=== PATIENT | male | born 1970 | race Caucasian/White ===

== ENCOUNTER 2018-03-30 20:24 | Emergency (ER) | payer OTHER ==
[2018-03-30] MEDS ORDERED: SODIUM CHLORIDE 0.9% 500 ML 500 ML IV STA (20:57)
[2018-03-30 21:08] VITALS: RESP 18
--- NOTE | 2018-03-30 21:13 | ED ---
General Adult HPI - General Source: patient Mode of arrival: ambulatory Limitations: no limitations <Kimmie Bennett - Last Filed: 03/31/18 02:10> <Yudelka Graff - Last Filed: 04/01/18 09:27> - General Chief complaint: Dizziness Stated complaint: Lt sided numbness Time Seen by Provider: 03/30/18 20:45 - History of Present Illness Initial comments: 47-year-old male patient presents to the emergency department today for complaints of dizziness and numbness to the left side of his body. Patient states his symptoms are present when he woke this morning. States he had altered sensation to the left side of his face left arm and left leg. Patient states he did have a mild headache with this. States he felt dizzy. Denies any blurred or double vision. States he was nauseated but did not vomit. Denies any chest pain, states he was having some mild shortness of breath. Patient states he is also feeling down and depressed. Denies any suicidal or homicidal ideation. Patient does have history of high blood pressure, type 2 diabetes, high cholesterol. States he was late taking his blood pressure medication today. Patient denies any recent rash, fever, chills, diarrhea, constipation, back pain, hematuria, dysuria, urinary urgency, urinary frequency , or any other complaints. (Kimmie Bennett) - Related Data Home Medications Medication Instructions Recorded Confirmed Aspirin 325 - 650 mg PO Q4H PRN 12/02/15 12/02/15 Atorvastatin [Lipitor] 10 mg PO HS 12/02/15 12/02/15 Losartan/Hydrochlorothiazide 1 tab PO HS 12/02/15 12/02/15 [Losartan-Hctz 100-25 mg Tab] PARoxetine HCL [Paroxetine HCl] 20 mg PO HS 12/02/15 12/02/15 Tadalafil [Cialis] 5 mg PO DIRECTED 12/02/15 12/02/15 amLODIPine BESYLATE [Amlodipine 10 mg PO HS 12/02/15 12/02/15 Besylate] metFORMIN HCL 500 mg PO HS 12/02/15 12/02/15 Allergies Allergy/AdvReac Type Severity Reaction Status Date / Time No Known Allergies Allergy Verified 03/30/18 20:32 Review of Systems ROS Other: All systems not noted in ROS Statement are negative. <Kimmie Bennett - Last Filed: 03/31/18 02:10> ROS Other: All systems not noted in ROS Statement are negative. <Yudelka Graff - Last Filed: 04/01/18 09:27> ROS Statement: Those systems with pertinent positive or pertinent negative responses have been documented in the HPI. Past Medical History Past Medical History: Diabetes Mellitus, Hyperlipidemia, Hypertension History of Any Multi-Drug Resistant Organisms: None Reported Past Surgical History: No Surgical Hx Reported Past Psychological History: Depression Smoking Status: Never smoker Past Alcohol Use History: None Reported Past Drug Use History: None Reported <LeonieJasper loraina M - Last Filed: 03/31/18 02:10> General Exam Limitations: no limitations General appearance: alert, in no apparent distress, other (This is a well- developed, well-nourished adult male patient in no acute distress. Vital signs upon presentation are temperature 98.4F, pulse 97, respirations 16, blood pressure 140/101, pulse ox 99% on room air.) Eye exam: Present: normal appearance, PERRL, EOMI. Absent: scleral icterus, conjunctival injection, periorbital swelling ENT exam: Present: normal exam, normal oropharynx, mucous membranes moist, TM's normal bilaterally Respiratory exam: Present: normal lung sounds bilaterally. Absent: respiratory distress, wheezes, rales, rhonchi, stridor Cardiovascular Exam: Present: regular rate, normal rhythm, normal heart sounds. Absent: systolic murmur, diastolic murmur, rubs, gallop, clicks Neurological exam: Present: alert, oriented X3, CN II-XII intact Expanded Speech: Present: fluid speech Cranial nerves: EOM's Intact: Normal, Tongue Deviation: Normal, Nystagmus: Normal Upper motor neuron: Pronator Drift: Normal, Sensory Extinction: Normal Sensory exam: Upper Extremity Light Touch: Normal, Lower Extremity Light Touch: Normal Motor strength exam: RUE: 5, LUE: 5, RLE: 5, LLE: 5 Psychiatric exam: Present: normal affect, normal mood Skin exam: Present: warm, dry, intact, normal color. Absent: rash <Kimmie Bennett M - Last Filed: 03/31/18 02:10> Vital Signs 03/30/18 03/30/18 03/30/18 20:28 21:05 21:40 Temperature 98.4 F Pulse Rate 97 91 98 Respiratory 16 18 18 Rate Blood Pressure 148/101 143/105 134/96 O2 Sat by Pulse 99 95 96 Oximetry 03/30/18 22:37 Temperature 98.0 F Pulse Rate 72 Respiratory 18 Rate Blood Pressure 141/109 O2 Sat by Pulse 99 Oximetry EKG Findings - EKG Comments: EKG Findings:: EKG obtained at 2054 shows normal sinus rhythm with an incomplete right bundle branch block. Ventricular rate is 80, parent will 160, QRS duration 104, QT 362, QTc 417. No evidence of ST elevation or depression. <Kimmie Bennett - Last Filed: 03/31/18 02:10> Medical Decision Making - Lab Data Result diagrams: 03/30/18 21:00 03/30/18 21:00 - Radiology Data Radiology results: report reviewed, image reviewed <Kimmie Bennett - Last Filed: 03/31/18 02:10> - Lab Data Result diagrams: 03/30/18 21:00 03/30/18 21:00 <Yudelka Graff - Last Filed: 04/01/18 09:27> - Medical Decision Making 47-year-old male patient presents to the emergency department today with complaints of her seizure to the left side of his body and some dizziness. Physical examination was unremarkable. Patient is neurologically intact with no focal deficits. Labs reviewed and are unremarkable. CT brain showed no acute intracranial abnormality but did show evidence of right-sided mastoiditis. Patient denies any ear pain, hearing impairment, or fever. For this could be related to inflammation or chronic for the patient. Patient does report symptoms have resolved at this time. He'll be discharged home to follow- up with his primary care physician to discuss referral to neurology. Return parameters were discussed in detail. He verbalizes understanding and agrees with this plan. (Kimmie Bennett) I was available for consultation in the emergency department. The history and physical exam were done by the midlevel provider. I was consulted for this patient's care. I reviewed the case with the midlevel provider and based on their presentation of the patient, I agree with the assessment, medical decision making and plan of care as documented. (Yudelka Graff) - Lab Data Lab Results 03/30/18 03/30/18 03/30/18 Range/Units 21:00 21:00 21:00 WBC 9.8 (3.8-10.6) k/uL RBC 5.18 (4.30-5.90) m/uL Hgb 15.1 (13.0-17.5) gm/dL Hct 44.7 (39.0-53.0) % MCV 86.3 (80.0-100.0) fL MCH 29.2 (25.0-35.0) pg MCHC 33.8 (31.0-37.0) g/dL RDW 12.2 (11.5-15.5) % Plt Count 288 (150-450) k/uL Neutrophils % 58 % Lymphocytes % 32 % Monocytes % 5 % Eosinophils % 2 % Basophils % 1 % Neutrophils # 5.7 (1.3-7.7) k/uL Lymphocytes # 3.1 (1.0-4.8) k/uL Monocytes # 0.5 (0-1.0) k/uL Eosinophils # 0.2 (0-0.7) k/uL Basophils # 0.1 (0-0.2) k/uL PT 10.1 (9.0-12.0) sec INR 0.9 (<1.2) APTT 22.9 (22.0-30.0) sec Sodium 139 (137-145) mmol/L Potassium 4.1 (3.5-5.1) mmol/L Chloride 102 (98-107) mmol/L Carbon Dioxide 24 (22-30) mmol/L Anion Gap 13 mmol/L BUN 23 H (9-20) mg/dL Creatinine 0.85 (0.66-1.25) mg/dL Est GFR (CKD-EPI)AfAm >90 (>60 ml/min/1.73 sqM) Est GFR (CKD-EPI)NonAf >90 (>60 ml/min/1.73 sqM) Glucose 137 H (74-99) mg/dL Calcium 9.7 (8.4-10.2) mg/dL Total Bilirubin 1.3 (0.2-1.3) mg/dL AST 32 (17-59) U/L ALT 39 (21-72) U/L Alkaline Phosphatase 79 (38-126) U/L Troponin I (0.000-0.034) ng/mL Total Protein 8.0 (6.3-8.2) g/dL Albumin 4.6 (3.5-5.0) g/dL Urine Color Urine Appearance (Clear) Urine pH (5.0-8.0) Ur Specific [place] (1.001-1.035) Urine Protein (Negative) Urine Glucose (UA) (Negative) Urine Ketones (Negative) Urine Blood (Negative) Urine Nitrite (Negative) Urine Bilirubin (Negative) Urine Urobilinogen (<2.0) mg/dL Ur Leukocyte Esterase (Negative) Urine Opiates Screen (NotDetected) Ur Oxycodone Screen (NotDetected) Urine Methadone Screen (NotDetected) Ur Propoxyphene Screen (NotDetected) Ur Barbiturates Screen (NotDetected) U Tricyclic Antidepress (NotDetected) Ur Phencyclidine Scrn (NotDetected) Ur Amphetamines Screen (NotDetected) U Methamphetamines Scrn (NotDetected) U Benzodiazepines Scrn (NotDetected) Urine Cocaine Screen (NotDetected) U Marijuana (THC) Screen (NotDetected) 03/30/18 03/30/18 Range/Units 21:00 21:38 WBC (3.8-10.6) k/uL RBC (4.30-5.90) m/uL Hgb (13.0-17.5) gm/dL Hct (39.0-53.0) % MCV (80.0-100.0) fL MCH (25.0-35.0) pg MCHC (31.0-37.0) g/dL RDW (11.5-15.5) % Plt Count (150-450) k/uL Neutrophils % % Lymphocytes % % Monocytes % % Eosinophils % % Basophils % % Neutrophils # (1.3-7.7) k/uL Lymphocytes # (1.0-4.8) k/uL Monocytes # (0-1.0) k/uL Eosinophils # (0-0.7) k/uL Basophils # (0-0.2) k/uL PT (9.0-12.0) sec INR (<1.2) APTT (22.0-30.0) sec Sodium (137-145) mmol/L Potassium (3.5-5.1) mmol/L Chloride (98-107) mmol/L Carbon Dioxide (22-30) mmol/L Anion Gap mmol/L BUN (9-20) mg/dL Creatinine (0.66-1.25) mg/dL Est GFR (CKD-EPI)AfAm (>60 ml/min/1.73 sqM) Est GFR (CKD-EPI)NonAf (>60 ml/min/1.73 sqM) Glucose (74-99) mg/dL Calcium (8.4-10.2) mg/dL Total Bilirubin (0.2-1.3) mg/dL AST (17-59) U/L ALT (21-72) U/L Alkaline Phosphatase (38-126) U/L Troponin I <0.012 (0.000-0.034) ng/mL Total Protein (6.3-8.2) g/dL Albumin (3.5-5.0) g/dL Urine Color Light Yellow Urine Appearance Clear (Clear) Urine pH 6.0 (5.0-8.0) Ur Specific [place] 1.014 (1.001-1.035) Urine Protein Negative (Negative) Urine Glucose (UA) Negative (Negative) Urine Ketones Trace H (Negative) Urine Blood Negative (Negative) Urine Nitrite Negative (Negative) Urine Bilirubin Negative (Negative) Urine Urobilinogen <2.0 (<2.0) mg/dL Ur Leukocyte Esterase Negative (Negative) Urine Opiates Screen Not Detected (NotDetected) Ur Oxycodone Screen Not Detected (NotDetected) Urine Methadone Screen Not Detected (NotDetected) Ur Propoxyphene Screen Not Detected (NotDetected) Ur Barbiturates Screen Not Detected (NotDetected) U Tricyclic Antidepress Not Detected (NotDetected) Ur Phencyclidine Scrn Not Detected (NotDetected) Ur Amphetamines Screen Not Detected (NotDetected) U Methamphetamines Scrn Not Detected (NotDetected) U Benzodiazepines Scrn Not Detected (NotDetected) Urine Cocaine Screen Not Detected (NotDetected) U Marijuana (THC) Screen Not Detected (NotDetected) - Radiology Data CT scan of the brain without contrast was performed. Report was reviewed in its entirety. Impression by Dr. Boss shows mild atrophy. No acute intracranial abdomen. Incomplete pneumatization of the right mastoid sinuses consistent with mastoiditis. This is a change compared to old exam. (Kimmie Bennett) Disposition Is patient prescribed a controlled substance at d/c from ED?: No Time of Disposition: 22:24 <Kimmie Bennett - Last Filed: 03/31/18 02:10> <Yudelka Graff - Last Filed: 04/01/18 09:27> Clinical Impression: Paresthesia, Dizziness Disposition: HOME SELF-CARE Condition: Good Instructions: Paresthesia (ED), Dizziness (ED) Additional Instructions: Follow-up with your primary care physician for recheck in 1-2 days. Discuss referral to neurology. Return immediately for any new, worsening, or concerning symptoms. Referrals: Guanakito Valladares MD [Primary Care Provider] - 1-2 days
[2018-03-30 21:21] LABS: Basophils # (A) 0.1 k/uL (0-0.2); Basophils % (A) 1 %; Eosinophils # (A) 0.2 k/uL (0-0.7); Eosinophils % (A) 2 %; HCT 44.7 % (39.0-53.0); HGB 15.1 gm/dL (13.0-17.5); Lymphocytes # (A) 3.1 k/uL (1.0-4.8); Lymphocytes % (A) 32 %; MCH 29.2 pg (25.0-35.0); MCHC 33.8 g/dL (31.0-37.0); MCV 86.3 fL (80.0-100.0); Mean Platelet Volume 6.6; Monocytes # (A) 0.5 k/uL (0-1.0); Monocytes % (A) 5 %; Neutrophils # (A) 5.7 k/uL (1.3-7.7); Neutrophils % (A) 58 %; Platelet Count 288 k/uL (150-450); RBC 5.18 m/uL (4.30-5.90); RDW 12.2 % (11.5-15.5); WBC 9.8 k/uL (3.8-10.6)
[2018-03-30 21:30] LABS: ALT 39 U/L (21-72); AST 32 U/L (17-59); Albumin 4.6 g/dL (3.5-5.0); Alkaline Phosphatase 79 U/L (38-126); Anion Gap 13 mmol/L; Blood Urea Nitrogen 23 mg/dL (9-20); Calcium 9.7 mg/dL (8.4-10.2); Carbon Dioxide 24 mmol/L (22-30); Chloride 102 mmol/L (98-107); Glucose 137 mg/dL (74-99); INR 0.9 (<1.2); Partial Thromboplastin Time 22.9 sec (22.0-30.0); Potassium 4.1 mmol/L (3.5-5.1); Prothrombin Time 10.1 sec (9.0-12.0); Sodium 139 mmol/L (137-145); Total Bilirubin 1.3 mg/dL (0.2-1.3)
--- NOTE | 2018-03-30 21:35 | CT ---
EXAMINATION TYPE: CT brain wo con DATE OF EXAM: 03/30/2018 COMPARISON: 06/10/2011 HISTORY: Dizziness and headache. CT DLP: 1150.4 mGycm. Automated Exposure Control for Dose Reduction was Utilized. TECHNIQUE: CT scan of the head is performed without contrast. FINDINGS: Ventricles of normal size. There is no mass effect nor midline shift. There is no sign of i ntracranial hemorrhage. The calvarium is intact. There is mild cerebral atrophy. IMPRESSION: Mild atrophy. No acute intracranial abnormality. Incomplete pneumatization of the right mastoid sinuses consistent with mastoiditis. This is a change compared to old exam.
[2018-03-30 22:03] LABS: Appearance,Urine Clear (Clear); Bilirubin,Urine Negative (Negative); Blood,Urine Negative (Negative); Color,Urine Light Yellow; Glucose,Urine (UA) Negative (Negative); Ketones,Urine Trace (Negative); Leukocyte Esterase,Urine Negative (Negative); Nitrite,Urine Negative (Negative); Protein,Urine Negative (Negative); Specific Gravity,Urine 1.014 (1.001-1.035); Urobilinogen,Urine <2.0 mg/dL (<2.0)
[2018-03-30 22:11] LABS: Amphetamine Screen,Urine Not Detected (NotDetected); Barbiturate Screen,Urine Not Detected (NotDetected); Benzodiazepines Screen,Urine Not Detected (NotDetected); Cocaine Screen,Urine Not Detected (NotDetected); Methadone Screen, Urine Not Detected (NotDetected); Opiate Screen,Urine Not Detected (NotDetected); Oxycodone Screen, Urine Not Detected (NotDetected); Phencyclidine Screen,Urine Not Detected (NotDetected); Tricyclic Antidepressant,Urine Not Detected (NotDetected); Urn Cannabinoid Scrn Not Detected (NotDetected)
[2018-03-30 22:38] VITALS: BP 141/109; PULSE 72; TEMP 98
== END 2018-03-30 22:38 | disposition home or self-care (01) ==
LOC: EC 20:24
DX: R20.2 Paresthesia of skin (principal); R42 Dizziness and giddiness; H70.91 Unspecified mastoiditis, right ear; R20.0 Anesthesia of skin; R11.0 Nausea; Z79.82 Long term (current) use of aspirin; Z79.84 Long term (current) use of oral hypoglycemic drugs; Z79.899 Other long term (current) drug therapy; E11.9 Type 2 diabetes mellitus without complications; E78.5 Hyperlipidemia, unspecified; I10 Essential (primary) hypertension; F32.9 Major depressive disorder, single episode, unspecified
CPT/HCPCS: 36415; 70450; 80053; 80306; 81003; 84484; 85025; 85610; 85730; 93005; 96360; 99284

== ENCOUNTER 2019-03-26 16:28 | Emergency (ER) | payer OTHER ==
--- NOTE | 2019-03-26 17:54 | XR ---
EXAMINATION TYPE: XR Hip Complete RT DATE OF EXAM: 03/26/2019 COMPARISON: 07/22/2015 HISTORY: Right hip pain TECHNIQUE: 2 views FINDINGS: Proximal femur is intact. Hip joint space is fairly normal. There is mild acetabular spurri ng. Right sacroiliac joint appears intact. IMPRESSION: No acute abnormality of the pelvis and right hip. Hip joint space is normal. No change co mpared to old exam.
--- NOTE | 2019-03-26 17:58 | XR ---
EXAMINATION TYPE: XR lumbar spine 2 or 3V DATE OF EXAM: 03/26/2019 COMPARISON: NONE HISTORY: Back pain TECHNIQUE: 3 views FINDINGS: Lumbar vertebra have normal alignment. There is anterior spurring at L4-5 and L5-S1. There is narrowing of L5-S1 disc space. Posterior elements are intact. Sacroiliac joints appear normal. IMPRESSION: Spondylosis in the lower lumbar spine. No fracture.
[2019-03-26] MEDS ORDERED: ACET/COD 300 MG/30 MG STARTER PACK 6 TAB BTL PO STA (18:54)
--- NOTE | 2019-03-26 18:54 | ED ---
Lower Extremity Injury HPI - General Source: patient Mode of arrival: ambulatory Limitations: no limitations <Shelly Luna - Last Filed: 03/27/19 00:01> <Kathi Leung - Last Filed: 03/29/19 21:33> - General Chief Complaint: Extremity Injury, Lower Stated Complaint: leg & knee pain Time Seen by Provider: 03/26/19 17:01 - History of Present Illness Initial Comments: 48-year-old male history of hypertension diabetes presenting today for chief complaint of right posterior leg pain. Patient states he is pain-free was noted that is a sharp burning pain down towards his right knee. Patient denies any leg swelling. Patient denies any history of DVT or pulmonary embolism. 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 Patient has a severe low back pain direct trauma or injury. Patient denies fe vers IV drug use history of cancer. Patient denies a loss of bowel bladder control urinary retention weakness or loss sensation of the lower extremity. Remaining review of systems negative upon arrival patient is ambultory. No signs of acute distress (Shelly Luna) - Related Data Home Medications Medication Instructions Recorded Confirmed Aspirin 325 - 650 mg PO Q4H PRN 12/02/15 12/02/15 Atorvastatin [Lipitor] 10 mg PO HS 12/02/15 12/02/15 Losartan/Hydrochlorothiazide 1 tab PO HS 12/02/15 12/02/15 [Losartan-Hctz 100-25 mg Tab] PARoxetine HCL [Paroxetine HCl] 20 mg PO HS 12/02/15 12/02/15 Tadalafil [Cialis] 5 mg PO DIRECTED 12/02/15 12/02/15 amLODIPine BESYLATE [Amlodipine 10 mg PO HS 12/02/15 12/02/15 Besylate] metFORMIN HCL 500 mg PO HS 12/02/15 12/02/15 Allergies Allergy/AdvReac Type Severity Reaction Status Date / Time No Known Allergies Allergy Verified 03/30/18 20:32 Review of Systems ROS Other: All systems not noted in ROS Statement are negative. <Shelly Luna - Last Filed: 03/27/19 00:01> ROS Other: All systems not noted in ROS Statement are negative. <Kathi Leung - Last Filed: 03/29/19 21:33> ROS Statement: Those systems with pertinent positive or pertinent negative responses have been documented in the HPI. Past Medical History Past Medical History: Diabetes Mellitus, Hyperlipidemia, Hypertension History of Any Multi-Drug Resistant Organisms: None Reported Past Surgical History: No Surgical Hx Reported Past Psychological History: Depression Smoking Status: Never smoker Past Alcohol Use History: None Reported Past Drug Use History: None Reported <Shelly Luna - Last Filed: 03/27/19 00:01> General Exam Limitations: no limitations <Shelly Luna - Last Filed: 03/27/19 00:01> - General Exam Comments Initial Comments: General: The patient is awake and alert, in no distress, and does not appear acutely ill. Eye: +3 mm pupils are equal, round and reactive to light, extra-ocular movements are intact. No nystagmus. There is normal conjunctiva bilaterally. No signs of icterus. Ears, nose, mouth and throat: There are moist mucous membranes and no oral lesions. Neck: The neck is supple, there is no tenderness or JVD. Cardiovascular: There is a regular rate and rhythm. No murmur, rub or gallop is appreciated. Respiratory: Lungs are clear to auscultation, respirations are non-labored, breath sounds are equal. No wheezes, stridor, rales, or rhonchi. Musculoskeletal: Some midline tenderness to palpation of the lumbar spine, mostly right-sided paravertebral. Patient has pain over the central buttock, normal inspection. Patient has no swelling of the lower extremity bilaterally. Strength and sensation including the saddle region. +2 dorsalis pedis pulses equal to person bilaterally. No Edema or clf pain pain to palpation. Neurological: A&O x 3. CN II-XII intact grossly, There are no obvious motor or sensory deficits. Coordination appears grossly intact. Speech is normal. Skin: Skin is warm and dry and no rashes or lesions are noted. Psychiatric: Cooperative, appropriate mood & affect, normal judgment. (Shelly Luna) Course Vital Signs 03/26/19 03/26/19 17:04 19:29 Temperature 98.4 F 98.2 F Pulse Rate 90 74 Respiratory 17 18 Rate Blood Pressure 139/84 128/82 O2 Sat by Pulse 98 99 Oximetry Medical Decision Making <Shelly Luna - Last Filed: 03/27/19 00:01> <Kathi Leung - Last Filed: 03/29/19 21:33> - Medical Decision Making 48-year-old male presenting for right leg pain. Patient's pain appears in the sciatic region. Lumbar spine films reveal no acute abnormalities nor right hip. Patient is neurovascularly intact. No leg swelling. Normal neurovascular exam. At this time given patient's burning description and the area of location if this is a sciatic, versus radiculopathy from lumbar spine. I discussed the importance of stressors and primary care follow-up with return parameters as discussed such as loss of bowel bladder control urinary retention loss of sensation or weakness of the lower extremities patient verbalized understanding and is discharge after I discussed the case with attending provider Dr. Leung (Shelly Luna) I was available for consultation in the emergency department. The history and physical exam were done by the midlevel provider. I was consulted for this patients care. I reviewed the case with the midlevel provider and based on their presentation of the patient, I agree with the assessment, medical decision making and plan of care as documented. Chart was dictated using [employer] dictation software. Attempts were made to correct any dictation errors however some typographical errors may persist. (Kathi Leung) Disposition Is patient prescribed a controlled substance at d/c from ED?: No Time of Disposition: 18:53 <Shelly Luna - Last Filed: 03/27/19 00:01> <Kathi Leung - Last Filed: 03/29/19 21:33> Clinical Impression: Leg pain, Radiculopathy Disposition: HOME SELF-CARE Condition: Good Instructions (If sedation given, give patient instructions): Lumbar Radiculopathy (ED), Piriformis Syndrome (ED) Additional Instructions: Please use medication as discussed. Please follow-up with family doctor in the next 2 days, return if there is any leg swelling, loss of bowel bladder control, unable to urinate, fever, weakness of the lower extremities. Please return to emergency room if the symptoms increase or worsen or for any other concerns. Referrals: Guanakito Valladares MD [Primary Care Provider] - 1-2 days
[2019-03-26 19:37] VITALS: BP 128/82; PULSE 74; RESP 18; TEMP 98.2
== END 2019-03-26 19:29 | disposition home or self-care (01) ==
LOC: EC 16:28
DX: M54.10 Radiculopathy, site unspecified (principal); E11.9 Type 2 diabetes mellitus without complications; I10 Essential (primary) hypertension; E78.5 Hyperlipidemia, unspecified; F32.9 Major depressive disorder, single episode, unspecified; Z79.82 Long term (current) use of aspirin; Z79.84 Long term (current) use of oral hypoglycemic drugs; Z79.899 Other long term (current) drug therapy
CPT/HCPCS: 72100; 73502; 99283

== ENCOUNTER 2019-06-11 21:29 | Emergency (ER) | payer OTHER ==
[2019-06-11 21:33] VITALS: RESP 18
[2019-06-11] MEDS ORDERED: ACETAMINOPHEN TAB 500 MG TAB PO STA (22:00)
--- NOTE | 2019-06-11 22:09 | ED ---
ENT HPI - General Chief complaint: ENT Stated complaint: Cough Time Seen by Provider: 06/11/19 21:43 Source: patient, RN notes reviewed, old records reviewed Mode of arrival: ambulatory Limitations: no limitations - History of Present Illness Initial comments: This is a 49-year-old male to the ER for evaluation patient has a for evaluation of nausea sore throat fevers patient is concerned for not feeling well positive fevers diffuse body aches and pains mild nausea no vomiting sore throat positive cough. Patient does have diabetes high blood pressure nonsmoker no travel history no sick contacts no known significant exposures. Patient concern for illness in symptoms began last night MD complaint: sore throat, other (cough, fever) -: days(s) Location: throat Severity: moderate (fever, pain) Severity scale (1-10): 5 Quality: aching, other (body aches) Improves with: none Worsens with: none Context- Ear: recent illness Associated Symptoms: fever, cough, sore throat - Related Data Home Medications Medication Instructions Recorded Confirmed Aspirin 325 - 650 mg PO Q4H PRN 12/02/15 12/02/15 Atorvastatin [Lipitor] 10 mg PO HS 12/02/15 12/02/15 Losartan/Hydrochlorothiazide 1 tab PO HS 12/02/15 12/02/15 [Losartan-Hctz 100-25 mg Tab] PARoxetine HCL [Paroxetine HCl] 20 mg PO HS 12/02/15 12/02/15 Tadalafil [Cialis] 5 mg PO DIRECTED 12/02/15 12/02/15 amLODIPine BESYLATE [Amlodipine 10 mg PO HS 12/02/15 12/02/15 Besylate] metFORMIN HCL 500 mg PO HS 12/02/15 12/02/15 Allergies Allergy/AdvReac Type Severity Reaction Status Date / Time No Known Allergies Allergy Verified 03/30/18 20:32 Review of Systems ROS Statement: Those systems with pertinent positive or pertinent negative responses have been documented in the HPI. ROS Other: All systems not noted in ROS Statement are negative. Past Medical History Past Medical History: Diabetes Mellitus, Hyperlipidemia, Hypertension History of Any Multi-Drug Resistant Organisms: None Reported Past Surgical History: No Surgical Hx Reported Past Psychological History: Depression Smoking Status: Never smoker Past Alcohol Use History: None Reported Past Drug Use History: None Reported General Exam Limitations: no limitations General appearance: alert, in no apparent distress Head exam: Present: atraumatic, normocephalic, normal inspection Eye exam: Present: normal appearance, PERRL, EOMI. Absent: scleral icterus, conjunctival injection, periorbital swelling ENT exam: Present: normal exam, mucous membranes moist Neck exam: Present: normal inspection. Absent: tenderness, meningismus, lymphadenopathy Respiratory exam: Present: normal lung sounds bilaterally. Absent: respiratory distress, wheezes, rales, rhonchi, stridor Cardiovascular Exam: Present: regular rate, normal rhythm, normal heart sounds. Absent: systolic murmur, diastolic murmur, rubs, gallop, clicks GI/Abdominal exam: Present: soft, normal bowel sounds. Absent: distended, ten derness, guarding, rebound, rigid Extremities exam: Present: normal inspection, full ROM, normal capillary refill. Absent: tenderness, pedal edema, joint swelling, calf tenderness Back exam: Present: normal inspection Neurological exam: Present: alert, oriented X3, CN II-XII intact Psychiatric exam: Present: normal affect, normal mood Skin exam: Present: warm, dry, intact, normal color. Absent: rash Course Vital Signs 06/11/19 06/11/19 21:30 22:36 Temperature 98.3 F 99.3 F Pulse Rate 88 Respiratory 18 Rate Blood Pressure 168/114 O2 Sat by Pulse 98 Oximetry - Reevaluation(s) Reevaluation #1: 06/11/19 22:34 medical record is reviewed Reevaluation #2: 06/11/19 22:35 patient is in NAD, no SOB, no Fever Reevaluation #3: 06/11/19 22:35 discussed with patient at length findings and informed positive flu test, patient still recommended a quarantined for 14 days Medical Decision Making - Medical Decision Making 49 male DF for evaluation patient with fever cough sore throat bodyaches and pains patient's positive for influenza. Patient was placed on Tamiflu discharged home still remembering recommended patient to be quarantined is questionable sulfur 14 - Lab Data Lab Results 06/11/19 Range/Units 22:13 Influenza Type A RNA Detected H (Not Detectd) Influenza Type B (PCR) Not Detected (Not Detectd) Group A Strep Rapid Negative (Negative) - Radiology Data Radiology results: report reviewed (Chest x-ray is negative for acute disease), image reviewed Disposition Clinical Impression: Influenza A, Fever Disposition: HOME SELF-CARE Condition: Good Instructions (If sedation given, give patient instructions): Influenza (ED) Is patient prescribed a controlled substance at d/c from ED?: No Referrals: Guanakito Valladares MD [Primary Care Provider] - 1-2 days
--- NOTE | 2019-06-11 22:35 | XR ---
EXAMINATION TYPE: XR chest 2V DATE OF EXAM: 06/11/2019 COMPARISON: 08/18/2015 HISTORY: Cough TECHNIQUE: FINDINGS: Heart and mediastinum are normal. Lungs are clear. Diaphragm is normal. Bony thorax appears normal. IMPRESSION: Normal chest. No change.
[2019-06-11 22:36] VITALS: TEMP 99.3
[2019-06-11 22:44] VITALS: BP 140/100; PULSE 89
== END 2019-06-11 22:45 | disposition home or self-care (01) ==
LOC: EC 21:29
DX: J10.1 Influenza due to other identified influenza virus with other respiratory manifestations (principal); E11.9 Type 2 diabetes mellitus without complications; I10 Essential (primary) hypertension; E78.5 Hyperlipidemia, unspecified; F32.9 Major depressive disorder, single episode, unspecified; Z79.82 Long term (current) use of aspirin; Z79.84 Long term (current) use of oral hypoglycemic drugs; Z79.899 Other long term (current) drug therapy
CPT/HCPCS: 71046; 87081; 87430; 87502; 99284

== ENCOUNTER 2020-10-18 18:57 | Emergency (ER) | payer OTHER ==
[2020-10-18 19:15] VITALS: TEMP 98.5
[2020-10-18] MEDS ORDERED: SODIUM CHLORIDE 0.9% 1,000 ML IV STA (19:39)
[2020-10-18] MEDS ORDERED: ONDANSETRON 4 MG/2 ML VIAL IVP STA (19:40)
--- NOTE | 2020-10-18 19:45 | ED ---
General Adult HPI - General Chief complaint: Recheck/Abnormal Lab/Rx Stated complaint: post vaccine issues Source: patient, RN notes reviewed, old records reviewed Mode of arrival: ambulatory Limitations: no limitations - History of Present Illness Initial comments: 50-year-old white male, well-appearing alert and oriented 4, presents to the emergency room with complaints of 4 months of fatigue, shortness of breath and generalized weakness since obtaining his second dose of the covid vaccine back in June. Patient states he has not felt right since he had 10 days after the vaccine where he was really sick but should be directed to the normal side effects. 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 He denies any fevers or vomiting but does state that he does get nauseous quite often. He states he has also been very thirsty with a dry mouth. Patient has not seen his primary care doctor for this. -: month(s) (4) Radiation: non-radiation Severity scale (1-10): 6 Quality: aching Consistency: constant Improves with: rest Worsens with: movement, other (Exception) Associated Symptoms: headaches, malaise, shortness of breath, weakness Treatments Prior to Arrival: none - Related Data Home Medications Medication Instructions Recorded Confirmed Aspirin 325 - 650 mg PO Q4H PRN 12/02/15 12/02/15 Atorvastatin [Lipitor] 10 mg PO HS 12/02/15 12/02/15 Losartan/Hydrochlorothiazide 1 tab PO HS 12/02/15 12/02/15 [Losartan-Hctz 100-25 mg Tab] amLODIPine BESYLATE [Amlodipine 10 mg PO HS 12/02/15 12/02/15 Besylate] metFORMIN HCL 500 mg PO HS 12/02/15 10/18/20 Previous Rx's Medication Instructions Recorded metFORMIN HCL [Glucophage] 500 mg PO BID 15 Days #30 tab 10/18/20 Allergies Allergy/AdvReac Type Severity Reaction Status Date / Time No Known Allergies Allergy Verified 10/18/20 21:19 Review of Systems ROS Statement: Those systems with pertinent positive or pertinent negative responses have been documented in the HPI. ROS Other: All systems not noted in ROS Statement are negative. Past Medical History Past Medical History: Diabetes Mellitus, Hyperlipidemia, Hypertension History of Any Multi-Drug Resistant Organisms: None Reported Past Surgical History: No Surgical Hx Reported Past Psychological History: Depression Smoking Status: Never smoker Past Alcohol Use History: None Reported Past Drug Use History: None Reported General Exam Limitations: no limitations General appearance: alert, in no apparent distress Head exam: Present: atraumatic, normocephalic, normal inspection Eye exam: Present: normal appearance, PERRL, EOMI. Absent: scleral icterus, conjunctival injection, periorbital swelling Pupils: Present: normal accommodation ENT exam: Present: normal exam, normal oropharynx, mucous membranes moist Neck exam: Present: normal inspection, full ROM. Absent: tenderness, meningismus, lymphadenopathy, thyromegaly Respiratory exam: Present: normal lung sounds bilaterally. Absent: respiratory distress, wheezes, rales, rhonchi, stridor, chest wall tenderness, accessory muscle use, decreased breath sounds, prolonged expiratory Cardiovascular Exam: Present: regular rate, normal rhythm, normal heart sounds. Absent: systolic murmur, diastolic murmur, rubs, gallop, clicks GI/Abdominal exam: Present: soft, normal bowel sounds. Absent: distended, tenderness, guarding, rebound, rigid Extremities exam: Present: normal inspection, full ROM, normal capillary refill. Absent: tenderness, pedal edema, joint swelling, calf tenderness Back exam: Present: normal inspection, full ROM. Absent: tenderness, CVA tenderness (R), CVA tenderness (L), muscle spasm, paraspinal tenderness, vertebral tenderness, rash noted Neurological exam: Present: alert, oriented X3, CN II-XII intact, normal gait Psychiatric exam: Present: normal affect, normal mood Skin exam: Present: warm, dry, intact, normal color. Absent: rash, cyanosis, diaphoretic, erythema, petechiae, pallor, mottled Course Vital Signs 10/18/20 19:11 Temperature 98.5 F Pulse Rate 86 Respiratory 20 Rate Blood Pressure 128/86 O2 Sat by Pulse 95 Oximetry EKG Findings - EKG Results: EKG: sinus rhythm (Ventricular rate 73, MA interval 0.138, QRS 0.106, QTC of 0.445), no acute changes, not changed from: (03/30/2018) Medical Decision Making - Medical Decision Making Sodium is 129, BUN 38 with a creatinine of 1.22, glucose is 348. patient is a inv-gvosjdy-zblehhmes diabetic on metformin 500 mg daily at bedtime. Urine shows 4+ glucose, negative for ketones and nitrites. Hyponatremia and hyperglycemia may be contributing to the patient's symptoms over the past 4 months. His troponin is negative at 0.012. Chest x-ray shows no cardiopulmonary abnormalities, normal chest x-ray. He has not seen Dr. Valladares for these symptoms. He was given a liter of normal saline. There is no evidence that this is infectious. Will increase patient's metformin dose to twice a day and have him follow-up with his primary care doctor this week. Case was discussed with Dr. Graff. - Lab Data Result diagrams: 10/18/20 19:40 10/18/20 19:40 Lab Results 10/18/20 10/18/20 10/18/20 Range/Units 19:40 19:40 19:40 WBC 9.8 (3.8-10.6) k/uL RBC 5.13 (4.30-5.90) m/uL Hgb 15.2 (13.0-17.5) gm/dL Hct 44.0 (39.0-53.0) % MCV 85.7 (80.0-100.0) fL MCH 29.6 (25.0-35.0) pg MCHC 34.5 (31.0-37.0) g/dL RDW 12.7 (11.5-15.5) % Plt Count 303 (150-450) k/uL MPV 7.7 Neutrophils % 60 % Lymphocytes % 29 % Monocytes % 6 % Eosinophils % 1 % Basophils % 0 % Neutrophils # 5.9 (1.3-7.7) k/uL Lymphocytes # 2.9 (1.0-4.8) k/uL Monocytes # 0.6 (0-1.0) k/uL Eosinophils # 0.1 (0-0.7) k/uL Basophils # 0.0 (0-0.2) k/uL D-Dimer 0.24 (<0.60) mg/L FEU Sodium (137-145) mmol/L Potassium (3.5-5.1) mmol/L Chloride (98-107) mmol/L Carbon Dioxide (22-30) mmol/L Anion Gap mmol/L BUN (9-20) mg/dL Creatinine (0.66-1.25) mg/dL Est GFR (CKD-EPI)AfAm (>60 ml/min/1.73 sqM) Est GFR (CKD-EPI)NonAf (>60 ml/min/1.73 sqM) Glucose (74-99) mg/dL Plasma Lactic Acid Nader (0.7-2.0) mmol/L Calcium (8.4-10.2) mg/dL Magnesium (1.6-2.3) mg/dL Total Bilirubin (0.2-1.3) mg/dL AST (17-59) U/L ALT (4-49) U/L Alkaline Phosphatase (38-126) U/L Troponin I (0.000-0.034) ng/mL Total Protein (6.3-8.2) g/dL Albumin (3.5-5.0) g/dL Urine Color Light Yellow Urine Appearance Clear (Clear) Urine pH 5.0 (5.0-8.0) Ur Specific [place] 1.014 (1.001-1.035) Urine Protein Negative (Negative) Urine Glucose (UA) 4+ H (Negative) Urine Ketones Negative (Negative) Urine Blood Negative (Negative) Urine Nitrite Negative (Negative) Urine Bilirubin Negative (Negative) Urine Urobilinogen <2.0 (<2.0) mg/dL Ur Leukocyte Esterase Negative (Negative) 10/18/20 10/18/20 10/18/20 Range/Units 19:40 19:40 19:40 WBC (3.8-10.6) k/uL RBC (4.30-5.90) m/uL Hgb (13.0-17.5) gm/dL Hct (39.0-53.0) % MCV (80.0-100.0) fL MCH (25.0-35.0) pg MCHC (31.0-37.0) g/dL RDW (11.5-15.5) % Plt Count (150-450) k/uL MPV Neutrophils % % Lymphocytes % % Monocytes % % Eosinophils % % Basophils % % Neutrophils # (1.3-7.7) k/uL Lymphocytes # (1.0-4.8) k/uL Monocytes # (0-1.0) k/uL Eosinophils # (0-0.7) k/uL Basophils # (0-0.2) k/uL D-Dimer (<0.60) mg/L FEU Sodium 129 L (137-145) mmol/L Potassium 4.1 (3.5-5.1) mmol/L Chloride 93 L (98-107) mmol/L Carbon Dioxide 23 (22-30) mmol/L Anion Gap 13 mmol/L BUN 38 H (9-20) mg/dL Creatinine 1.22 (0.66-1.25) mg/dL Est GFR (CKD-EPI)AfAm 80 (>60 ml/min/1.73 sqM) Est GFR (CKD-EPI)NonAf 69 (>60 ml/min/1.73 sqM) Glucose 348 H (74-99) mg/dL Plasma Lactic Acid Nader 1.9 (0.7-2.0) mmol/L Calcium 10.0 (8.4-10.2) mg/dL Magnesium 2.0 (1.6-2.3) mg/dL Total Bilirubin 1.2 (0.2-1.3) mg/dL AST 29 (17-59) U/L ALT 28 (4-49) U/L Alkaline Phosphatase 89 (38-126) U/L Troponin I <0.012 (0.000-0.034) ng/mL Total Protein 7.5 (6.3-8.2) g/dL Albumin 4.5 (3.5-5.0) g/dL Urine Color Urine Appearance (Clear) Urine pH (5.0-8.0) Ur Specific [place] (1.001-1.035) Urine Protein (Negative) Urine Glucose (UA) (Negative) Urine Ketones (Negative) Urine Blood (Negative) Urine Nitrite (Negative) Urine Bilirubin (Negative) Urine Urobilinogen (<2.0) mg/dL Ur Leukocyte Esterase (Negative) Disposition Clinical Impression: Hyperglycemia due to diabetes mellitus Disposition: HOME SELF-CARE Condition: Fair Instructions (If sedation given, give patient instructions): Managing Diabetes During Sick Days (ED) Additional Instructions: Increase your metformin dose to 500 mg twice a day. Follow-up with Dr. Valladares this week. Return to the emergency room with worsening symptoms, nausea vomiting diarrhea or fevers. Prescriptions: metFORMIN HCL [Glucophage] 500 mg PO BID 15 Days #30 tab Is patient prescribed a controlled substance at d/c from ED?: No Referrals: Guanakito Valladares MD [Primary Care Provider] - 1-2 days Time of Disposition: 21:28
[2020-10-18 20:26] LABS: Basophils % (A) 0 %; Eosinophils # (A) 0.1 k/uL (0-0.7); Eosinophils % (A) 1 %; HGB 15.2 gm/dL (13.0-17.5); Lymphocytes # (A) 2.9 k/uL (1.0-4.8); Lymphocytes % (A) 29 %; MCH 29.6 pg (25.0-35.0); MCHC 34.5 g/dL (31.0-37.0); MCV 85.7 fL (80.0-100.0); Mean Platelet Volume 7.7; Monocytes # (A) 0.6 k/uL (0-1.0); Monocytes % (A) 6 %; Neutrophils # (A) 5.9 k/uL (1.3-7.7); Neutrophils % (A) 60 %; Platelet Count 303 k/uL (150-450); RBC 5.13 m/uL (4.30-5.90); RDW 12.7 % (11.5-15.5); WBC 9.8 k/uL (3.8-10.6)
[2020-10-18 20:34] LABS: Albumin 4.5 g/dL (3.5-5.0); Potassium 4.1 mmol/L (3.5-5.1); Total Bilirubin 1.2 mg/dL (0.2-1.3); Total Protein 7.5 g/dL (6.3-8.2)
--- NOTE | 2020-10-18 20:49 | XR ---
EXAMINATION TYPE: XR chest 2V DATE OF EXAM: 10/18/2020 COMPARISON: 05/13/2019 HISTORY: Difficulty breathing TECHNIQUE: 2 views FINDINGS: Heart and mediastinum are normal. Lungs are clear. Diaphragm is normal. Bony thorax is inta ct. Pulmonary vascularity is normal. IMPRESSION: Normal chest. No change.
[2020-10-18 21:14] LABS: Appearance,Urine Clear (Clear); Bilirubin,Urine Negative (Negative); Blood,Urine Negative (Negative); Color,Urine Light Yellow; Glucose,Urine (UA) 4+ (Negative); Ketones,Urine Negative (Negative); Leukocyte Esterase,Urine Negative (Negative); Nitrite,Urine Negative (Negative); Protein,Urine Negative (Negative); Specific Gravity,Urine 1.014 (1.001-1.035); Urobilinogen,Urine <2.0 mg/dL (<2.0)
[2020-10-18 21:45] LABS: Glucose,Whole Blood 275 mg/dL (75-99)
[2020-10-18] MEDS ORDERED: metFORMIN 500 MG TAB PO STA (21:48)
[2020-10-18 21:49] VITALS: BP 115/75; PULSE 70; RESP 16
== END 2020-10-18 21:49 | disposition home or self-care (01) ==
LOC: EC 18:57
DX: E11.65 Type 2 diabetes mellitus with hyperglycemia (principal); R06.02 Shortness of breath; I10 Essential (primary) hypertension; E78.5 Hyperlipidemia, unspecified; Z79.84 Long term (current) use of oral hypoglycemic drugs; F32.9 Major depressive disorder, single episode, unspecified; Z79.82 Long term (current) use of aspirin
CPT/HCPCS: 36415; 93005; 85379; 80053; 83605; 83735; 84484; 85025; 81003; 71046; 99285; 96374; 96361; J2405

== ENCOUNTER 2021-03-08 21:57 | Emergency (ER) | payer OTHER ==
[2021-03-08 22:29] VITALS: RESP 18
--- NOTE | 2021-03-08 22:31 | ED ---
General Adult HPI - General Chief complaint: Upper Respiratory Infection Stated complaint: Cough,fever,SOB Time Seen by Provider: 03/08/21 22:04 Source: patient Mode of arrival: ambulatory Limitations: no limitations - History of Present Illness Initial comments: 50-year-old male presents to the emergency room for a chief complaint of "flulike symptoms." Patient states that for the past one hour he has not felt well. States he has congestion and body aches and a slight cough. States his mother was just diagnosed with pneumonia. Patient denies fevers or shortness of breath.Patient has no other complaints at this time including shortness of breath, chest pain, abdominal pain, nausea or vomiting, headache, or visual changes. - Related Data Home Medications Medication Instructions Recorded Confirmed Atorvastatin [Lipitor] 10 mg PO DAILY 12/02/15 03/08/21 metFORMIN HCL 500 mg PO DAILY 12/02/15 03/08/21 Aspirin 81 mg PO DAILY 03/08/21 03/08/21 Tribenzor (Unknown Dose) 1 dose PO DIRECTED 03/08/21 03/08/21 Allergies Allergy/AdvReac Type Severity Reaction Status Date / Time No Known Allergies Allergy Verified 03/08/21 22:46 Review of Systems ROS Statement: Those systems with pertinent positive or pertinent negative responses have been documented in the HPI. ROS Other: All systems not noted in ROS Statement are negative. Past Medical History Past Medical History: Diabetes Mellitus, Hyperlipidemia, Hypertension History of Any Multi-Drug Resistant Organisms: None Reported Past Surgical History: No Surgical Hx Reported Past Psychological History: Depression Smoking Status: Never smoker Past Alcohol Use History: None Reported Past Drug Use History: None Reported General Exam Limitations: no limitations General appearance: alert, in no apparent distress Head exam: Present: atraumatic Eye exam: Present: normal appearance, PERRL, EOMI. Absent: scleral icterus, conjunctival injection ENT exam: Present: normal exam, mucous membranes moist Neck exam: Present: normal inspection, full ROM. Absent: tenderness Respiratory exam: Present: normal lung sounds bilaterally. Absent: respiratory distress, wheezes Cardiovascular Exam: Present: regular rate, normal rhythm, normal heart sounds GI/Abdominal exam: Present: soft, normal bowel sounds. Absent: distended, tenderness Course Vital Signs 03/08/21 03/08/21 22:00 22:28 Temperature 99.1 F Pulse Rate 95 Respiratory 20 18 Rate Blood Pressure 141/96 O2 Sat by Pulse 98 Oximetry Medical Decision Making - Medical Decision Making vitals stable. Patient is well-appearing. No respiratory distress. He does have mild congestion. COVID-19, influenza negative. Chest x-ray shows no pneumonia. Patient likely has viral upper respiratory infection. She can be discharged home to follow up with primary care. Will return here for any worsening symptoms. - Lab Data Lab Results 03/08/21 03/08/21 Range/Units 22:10 22:10 Coronavirus (PCR) Not Detected (Not Detectd) Influenza Type A RNA Not Detected (Not Detectd) Influenza Type B (PCR) Not Detected (Not Detectd) Disposition Clinical Impression: Nasal congestion Disposition: HOME SELF-CARE Condition: Good Instructions (If sedation given, give patient instructions): Upper Respiratory Infection (ED) Additional Instructions: please take Motrin and Tylenol for pain. Take [id number] cold and flu medications. Follow-up with your doctor. Return to the emergency room for any worsening symptoms. Is patient prescribed a controlled substance at d/c from ED?: No Referrals: Guanakito Valladares MD [Primary Care Provider] - 1-2 days Time of Disposition: 23:10
--- NOTE | 2021-03-08 22:45 | XR ---
EXAMINATION TYPE: XR chest 2V DATE OF EXAM: 03/08/2021 COMPARISON: 10/18/2020 HISTORY: Cough TECHNIQUE: FINDINGS: Heart and mediastinum are normal. Lungs are clear. Diaphragm is normal. Bony thorax appears normal. IMPRESSION: Normal chest. No change.
[2021-03-09 00:03] VITALS: BP 142/101; PULSE 90; TEMP 98.6
== END 2021-03-08 23:30 | disposition home or self-care (01) ==
LOC: EC 21:57
DX: R09.81 Nasal congestion (principal); Z20.822 Contact with and (suspected) exposure to COVID-19; E11.9 Type 2 diabetes mellitus without complications; I10 Essential (primary) hypertension; E78.5 Hyperlipidemia, unspecified; F32.A Depression, unspecified; Z79.84 Long term (current) use of oral hypoglycemic drugs; Z79.82 Long term (current) use of aspirin; Z79.899 Other long term (current) drug therapy
CPT/HCPCS: 71046; 87502; 87635; 99284

== ENCOUNTER 2021-04-07 03:13 | Emergency (ER) | payer OTHER ==
--- NOTE | 2021-04-07 03:46 | ED ---
URI HPI - General Chief Complaint: Headache Stated Complaint: Chills, headache Time Seen by Provider: 04/07/21 03:30 Source: patient Mode of arrival: ambulatory Limitations: no limitations - History of Present Illness Initial Comments: This patient is a 51-year-old man who presents with onset of fever and chills, sinus pressure mild cough starting tonight. MD Complaint: fever, cough, other -: hour(s) Severity: moderate Quality: other (Pressure) Consistency: constant Improves With: nothing Worsens With: nothing Associated Symptoms: fever, chills Treatments Prior to Arrival: none - Related Data Home Medications Medication Instructions Recorded Confirmed Atorvastatin [Lipitor] 10 mg PO DAILY 12/02/15 03/08/21 metFORMIN HCL 500 mg PO DAILY 12/02/15 03/08/21 Aspirin 81 mg PO DAILY 03/08/21 03/08/21 Tribenzor (Unknown Dose) 1 dose PO DIRECTED 03/08/21 03/08/21 Previous Rx's Medication Instructions Recorded Olmesartan/Amlodipin/Hcthiazid 1 each PO DAILY #14 tablet 03/09/21 [Tribenzor 40-10-25 mg Tablet] Allergies Allergy/AdvReac Type Severity Reaction Status Date / Time No Known Allergies Allergy Verified 04/07/21 03:19 Review of Systems ROS Statement: Those systems with pertinent positive or pertinent negative responses have been documented in the HPI. ROS Other: All systems not noted in ROS Statement are negative. Constitutional: Reports: fever, chills Eyes: Denies: eye pain, vision change ENT: Reports: congestion Respiratory: Reports: cough. Denies: dyspnea Cardiovascular: Denies: chest pain, palpitations Gastrointestinal: Denies: abdominal pain, nausea, vomiting, diarrhea Skin: Denies: rash Neurological: Reports: headache Past Medical History Past Medical History: Diabetes Mellitus, Hyperlipidemia, Hypertension History of Any Multi-Drug Resistant Organisms: None Reported Past Surgical History: No Surgical Hx Reported Past Psychological History: Depression Smoking Status: Never smoker Past Alcohol Use History: None Reported Past Drug Use History: None Reported General Exam Limitations: no limitations General appearance: alert, in no apparent distress Head exam: Present: atraumatic, normocephalic Eye exam: Present: normal appearance. Absent: scleral icterus, conjunctival injection ENT exam: Present: normal oropharynx, mucous membranes moist, TM's normal bilaterally Neck exam: Present: normal inspection, full ROM Respiratory exam: Present: normal lung sounds bilaterally. Absent: respiratory distress, wheezes, rales, rhonchi, stridor Cardiovascular Exam: Present: regular rate, normal rhythm, normal heart sounds. Absent: systolic murmur, diastolic murmur, rubs, gallop Neurological exam: Present: alert Skin exam: Present: warm, dry, intact, normal color. Absent: rash Course Vital Signs 04/07/21 04/07/21 03:15 04:08 Temperature 102 F H 101.4 F H Pulse Rate 108 H 108 H Respiratory 24 18 Rate Blood Pressure 138/91 157/102 O2 Sat by Pulse 97 96 Oximetry Medical Decision Making - Lab Data Lab Results 04/07/21 Range/Units 03:48 Coronavirus (PCR) Detected A (Not Detectd) Disposition Clinical Impression: COVID-19 Disposition: HOME SELF-CARE Condition: Good Instructions (If sedation given, give patient instructions): Coronavirus Disease 2019 (COVID-19) Is patient prescribed a controlled substance at d/c from ED?: No Referrals: Guanakito Valladares MD [Primary Care Provider] - 1-2 days
[2021-04-07 04:10] VITALS: RESP 18
[2021-04-07] MEDS ORDERED: IBUPROFEN 600 MG TAB PO STA (04:35)
[2021-04-07 04:54] VITALS: BP 157/92; PULSE 91; TEMP 100.1
== END 2021-04-07 05:00 | disposition home or self-care (01) ==
LOC: EC 03:13
DX: U07.1 COVID-19 (principal); E11.9 Type 2 diabetes mellitus without complications; E78.5 Hyperlipidemia, unspecified; I10 Essential (primary) hypertension; F32.A Depression, unspecified
CPT/HCPCS: 87635; 99283